=== PATIENT | female | born 1985 | race Caucasian/White ===

== ENCOUNTER 2025-03-25 19:46 | Inpatient (IN) | payer OTHER, SELFPAY ==
--- NOTE | 2025-03-25 | ECG_ITS ---
Test Reason : MED CLEAR Blood Pressure : */* mmHG Vent. Rate : 61 BPM Atrial Rate : 61 BPM P-R Int : 156 ms QRS Dur : 78 ms QT Int : 432 ms P-R-T Axes : 36 51 53 degrees QTcB Int : 434 ms Normal sinus rhythm Normal ECG No previous ECGs available Referred By: Amy Hu Electronically Signed By: JAMSHID AGUILAR
--- NOTE | 2025-03-25 20:07 | MHC.EDTECH ---
patient unable to use mesh underwear on when offered, patient is allergic to mesh. kept cotton underwear. RN Kaitlyn aware
[2025-03-25 20:12] VITALS: BP 122/90; BP 129/60; PULSE 80; PULSE 92; RESP 18; TEMP 36.6; O2SAT 95; O2SAT 97; BMI 29.0
[2025-03-25 21:49] LABS: MANUAL DIFF FLAG NO
[2025-03-25 21:51] LABS: Basophils Percent Auto 0.4 % (0-2); Eosinophils Percent Auto 0.4 % (0-4); Hematocrit 37.1 % (37.0-47.0); Hemoglobin 12.6 g/dl (12.0-16.0); Imm Gran Abs Auto 0.05 X10*3/uL (0.00-0.03); Imm Gran Pct Auto 0.9 % (0.0-0.4); Lymphocytes Absolute Auto 2.4 X10*3/uL (1.2-4.9); Lymphocytes Percent Auto 41.8 % (20-40); Mean Corpuscular Hemoglobin 29.1 pg (27.0-33.0); Mean Corpuscular Volume 85.7 fL (80.0-98.0); Mean Platelet Volume 10.3 fL (9.4-12.3); Monocytes Absolute Auto 0.3 X10*3/uL (0.1-1.2); Monocytes Percent Auto 4.6 % (2-11); Neutrophils Percent Auto 51.9 % (45-73); Platelet Count 309 X10*3/uL (160-400); Red Blood Count 4.33 X10*6/uL (4.20-5.50); Red Cell Distribution Width 14.8 % (11.0-16.0); White Blood Count 5.7 X10*3/uL (4.8-10.8)
[2025-03-25 22:07] LABS: Acetaminophen LAB < 3 mcg/mL (<30); Alanine Aminotransferase 26 U/L (0-31); Albumin Level 4.5 g/dL (3.5-5.0); Alkaline Phosphatase 121 U/L (39-117); Anion Gap 16 (12-20); Aspartate Amino Transferase 25 U/L (5-31); Bilirubin Total 0.6 mg/dL (0.0-1.0); Blood Urea Nitrogen 16 mg/dL (9-16); Calcium 9.7 mg/dL (8.4-10.2); Carbon Dioxide 26 mmol/L (22-29); Chloride 101 mmol/L (96-108); Creatinine Clr Calc Pharmacy 112.3; Estimated Glomerular Filt Rate > 60; Ethanol < 10 mg/dL; Glucose Random 95 mg/dL (60-115); Magnesium 1.9 mg/dL (1.6-2.6); Potassium 3.1 mmol/L (3.3-5.1); Salicylate < 5.0 mg/dL (15-30); Sodium 140 mmol/L (135-145); Total Protein 7.9 g/dL (6.5-8.0)
--- NOTE | 2025-03-25 23:34 | PC.NURSE ---
patient called t/w to her room then said im all set-dont want to deal with you
--- NOTE | 2025-03-25 23:58 | ED.GENADULT ---
HPI - General Adult General Chief complaint: Psychiatric Symptoms Stated complaint: sect. 12, delusional thinking Time Seen by Provider: 03/25/25 20:40 Source: patient Limitations: no limitations History of Present Illness ED Provider: Amy Hu PA-C HPI narrative: 40-year-old female with history of unspecified schizophrenia spectrum and other psychotic disorder, with self report of COPD, fibromyalgia, osteoporosis, leukemia, sickle cell disease, diverticulitis, presents from [facility], via section 12, with decompensated psychiatric illness. Patient was recently incarcerated on March 23 at [facility]'s [facility] [place], after being arrested for breaking and entering and vandalism. During her incarceration, the patient developed delusional thoughts, agitation, she was not tending to her activities of daily living, which included refusing to eat and tending to her basic hygiene. Patient has also not been taking her psychiatric medications, she has been refusing them. When the patient is asked why she is here in the emergency department, she states ?it is all medical, I am not a section 12, I am here for medical reasons?. Patient further explains that she is having pelvic pain with vaginal bleeding, soaking through a pad every hour for 2 weeks. It is well documented in the [facility] paperwork that the patient has not been experiencing vaginal bleeding. The patient continues to deny SI or HI, denies use of alcohol or illicit substances. Related Data Home Medications ?Medication ?Instructions ?Recorded ?Confirmed clonazepam 0.5 mg tablet 0.5 mg PO BID PRN anxiety 03/26/25 03/26/25 divalproex 500 mg tablet,extended 500 mg PO QPM 03/26/25 03/26/25 release 24 hr gabapentin 600 mg tablet 600 mg PO BID anxiety 03/26/25 03/26/25 methadone 10 mg/mL oral 90 mg PO DAILY 03/26/25 03/26/25 concentrate (Methadone Intensol) omeprazole 40 mg capsule,delayed 40 mg PO DAILY 03/26/25 03/26/25 release Allergies Allergy/AdvReac Type Severity Reaction Status Date / Time haloperidol [From Haldol] Allergy Unknown Verified 03/25/25 22:22 ibuprofen Allergy Unknown Verified 03/25/25 22:22 ketorolac [From Toradol] Allergy Unknown Verified 03/25/25 22:22 latex Allergy Unknown Verified 03/25/25 22:22 metoclopramide [From Reglan] Allergy Unknown Verified 03/25/25 22:22 olanzapine [From Zyprexa] Allergy Unknown Verified 03/25/25 22:22 prochlorperazine Allergy Unknown Verified 03/25/25 22:22 [From Compazine] tramadol Allergy Unknown Verified 03/25/25 22:22 Review of Systems Review of Systems: Yes all other systems are reviewed and are negative Constitutional: Constitutional: Denies fatigue and Denies fever(s) Cardiovascular: Cardiovascular: Denies chest pain and Denies dyspnea Respiratory: Respiratory: Denies cough and Denies dyspnea Gastrointestinal: Gastrointestinal: Reports abdominal pain, Denies nausea and Denies vomiting Genitourinary: Genitourinary: Reports other (Vaginal bleeding) Endocrine: Endocrine: Denies fatigue PMF Past Medical History Attestation statement: The following information was validated with the patient. Medical History (Updated 03/26/25 @ 02:57 by MAN De Leon) PTSD (post-traumatic stress disorder) Schizophrenia ADHD ADD (attention deficit disorder) COPD (chronic obstructive pulmonary disease) Social History Social History Unable to assess alcohol history related to: Refusing to respond Patient Tobacco Use Status: Refuse Tobacco use screen Smoked in Last 30 Days: No Use of substances other than those prescribed or required for medical reasons: No Advance Directives: No Advance Directives Information Provided: Yes Do you have a plan to hurt others: No Plan Nutrition Risks: No Nutritional Risk Patient : No Physical Exam ED Vital Signs: Vital Signs - 24 hr 03/25/25 20:12 03/26/25 06:45 03/26/25 14:30 Temperature 97.9 F 98 F 98.0 F Pulse Rate 92 68 81 Respiratory Rate 18 18 14 Blood Pressure 129/60 104/55 L 112/61 Pulse Oximetry 97 98 95 Oxygen Delivery Method Room Air Room Air Room Air BMI result Body Mass Index 29.0 Const Other: Awake, appears older than stated age, appears that she just showered Orientation/consciousness: patient oriented x3 Resp Effort & Inspection: normal respiratory effort Cardio Other: Normal peripheral perfusion GI Other: The patient is guarding against palpation of the abdomen before being touched, with distraction, her abdomen is extremely soft nondistended nontender no guarding Skin Other: Warm dry no rash Neuro General: patient oriented x3, gait normal, no focal motor deficits and CN's II-XI intact bilaterally Psych Other: Cooperative for me in the emergency department, exhibiting paranoid delusions, asking that the record of her being incarcerated be removed from her chart given ?the charges were false?. Patient having pressured speech, speaking rapidly Course Course Course Narrative: Time: 15:35 Date: 03/26/25 Provider: Juan Hackett MD Physician observation ended at 1426. Patient to be admitted as inpatient to psychiatry. Reevaluation(s) Reevaluation #1: Time: 02:57 Date: 03/26/25 Provider: MAN De Leon Patient in physician observation for psychiatric evaluation.? No acute events reported overnight. No current complaints. VS stable.? Patient is in bed search status/pending CARE team evaluation. Will continue to monitor. Medications Administered Generic Name Dose Route Start Last Admin Trade Name Freq PRN Reason Stop Dose Admin Methadone HCl 90 mg 03/26/25 10:30 03/26/25 10:33 Methadone Hcl 20 Mg/2 Ml Oral.Conc PO 90 mg DAILY FRANCES Administration Omeprazole 40 mg 03/26/25 10:30 03/26/25 10:39 Omeprazole 40 Mg Capsule.Dr PO 40 mg DAILY@0630 FRANCES Administration Discontinued Medications Generic Name Dose Route Start Last Admin Trade Name Freq PRN Reason Stop Dose Admin Acetaminophen 650 mg 03/25/25 23:49 03/26/25 00:03 Acetaminophen 325 Mg Tablet PO 03/25/25 23:50 650 mg ONCE ONE Administration Clonazepam 0.5 mg 03/26/25 10:13 03/26/25 10:39 Clonazepam 0.5 Mg Tablet PO 0.5 mg BID PRN Administration Anxiety Gabapentin 600 mg 03/26/25 10:13 03/26/25 10:39 Gabapentin 600 Mg Tablet PO 600 mg BID PRN Administration Anxiety Medical Decision Making Medical Decision Making MDM Narrative: 40-year-old female with history of unspecified schizophrenia spectrum and other psychotic disorder, with self report of COPD, fibromyalgia, osteoporosis, leukemia, sickle cell disease, diverticulitis, presents from [facility], via section 12, with decompensated psychiatric illness. Patient was recently incarcerated on March 23 at [facility]'s [facility], after being arrested for breaking and entering and vandalism. During her incarceration, the patient developed delusional thoughts, agitation, she was not tending to her activities of daily living, which included refusing to eat and tending to her basic hygiene. Patient has also not been taking her psychiatric medications, she has been refusing them. When the patient is asked why she is here in the emergency department, she states ?it is all medical, I am not a section 12, I am here for medical reasons?. Patient further explains that she is having pelvic pain with vaginal bleeding, soaking through a pad every hour for 2 weeks. It is well documented in the [facility] paperwork that the patient has not been experiencing vaginal bleeding. The patient continues to deny SI or HI, denies use of alcohol or illicit substances. Problem: Psychiatric illness History: Per patient and [facility] record I have considered the following differential diagnoses: SI, HI, decompensated psychiatric illness, drug/alcohol intoxication Plan: The patient will be referred to the care team, I foresee her being a bed search, she does appear quite decompensated. We will be screening basic labs, serum ethanol and drug screen. And test. I have independently reviewed the following tests: Labs: No leukocytosis, not anemic, her blood counts are quite stable, potassium low at 3.1, no electrolyte abnormality, test , ethanol negative, drug screen positive for methadone Lab Data 03/25/25 21:41 03/26/25 13:09 Labs: Lab Results 03/25/25 03/26/25 03/26/25 Range/Units 21:41 00:09 13:09 WBC 5.7 (4.8-10.8) X10*3/uL RBC 4.33 (4.20-5.50) X10*6/uL Hgb 12.6 (12.0-16.0) g/dl Hct 37.1 (37.0-47.0) % MCV 85.7 (80.0-98.0) fL MCH 29.1 (27.0-33.0) pg MCHC 34.0 (31.0-35.0) g/dl RDW 14.8 (11.0-16.0) % Plt Count 309 (160-400) X10*3/uL MPV 10.3 (9.4-12.3) fL Immature Gran % (Auto) 0.9 H (0.0-0.4) % Neut % (Auto) 51.9 (45-73) % Lymph % (Auto) 41.8 H (20-40) % Weber % (Auto) 4.6 (2-11) % Eos % (Auto) 0.4 (0-4) % Baso % (Auto) 0.4 (0-2) % Lymph # (Auto) 2.4 (1.2-4.9) X10*3/uL Weber # (Auto) 0.3 (0.1-1.2) X10*3/uL Eos # (Auto) 0.0 (0.0-0.4) X10*3/uL Baso # (Auto) 0.0 (0.0-0.2) X10*3/uL Abs Immat Gran (auto) 0.05 H (0.00-0.03) X10*3/uL Absolute Neuts (auto) 3.0 (2.0-8.3) x10*3/uL Absolute Nucleated RBC 0.000 (0.0-0.012) X10*3/uL Nucleated RBC % (auto) 0.0 (0.0-0.2) /100WBC Sodium 140 135 (135-145) mmol/L Potassium 3.1 L 3.5 (3.3-5.1) mmol/L Chloride 101 100 (96-108) mmol/L Carbon Dioxide 26 26 (22-29) mmol/L Anion Gap 16 13 (12-20) BUN 16 12 (9-16) mg/dL Creatinine 0.71 0.68 (0.5-1.4) mg/dL Estim Creat Clear Calc 112.3 117.2 Estimated GFR > 60 > 60 Random Glucose 95 107 (60-115) mg/dL Calcium 9.7 9.5 (8.4-10.2) mg/dL Magnesium 1.9 (1.6-2.6) mg/dL Total Bilirubin 0.6 (0.0-1.0) mg/dL AST 25 (5-31) U/L ALT 26 (0-31) U/L Alkaline Phosphatase 121 H (39-117) U/L Total Protein 7.9 (6.5-8.0) g/dL Albumin 4.5 (3.5-5.0) g/dL Beta HCG, Quant < 2 mIU/mL Urine Color Dark Yellow Urine Appearance Clear Urine pH 6.0 (5.0-9.0) Ur Specific Raymond 1.025 (1.005-1.025) Urine Protein 30 (1+) H (Neg-Trace) mg/dL Urine Glucose (UA) Negative (Negative) mg/dL Urine Ketones 15 (Negative) mg/dL Urine Blood Trace H (Negative) Urine Nitrite Negative (Negative) Ur Leukocyte Esterase Negative (Negative) Urine RBC 0-2 (0-2) /HPF Urine WBC 0-5 (0-5) /HPF Ur Squamous Epith Cells 3-5 (0-2) /HPF Calcium Oxalate Crystal Present Urine Bacteria None Seen (None Seen) Hyaline Casts 0-2 (0-2) /LPF Salicylates < 5.0 L (15-30) mg/dL Urine Opiates Screen Not Detected (Not Detect) Ur Buprenorphine Scrn Not Detected (Not Detect) ng/mL Ur Oxycodone Screen Not Detected (Not Detect) ng/mL Urine Methadone Screen Positive H (Not Detect) ng/mL Urine Fentanyl Screen Not Detected (Not Detect) Acetaminophen < 3 (<30) mcg/mL Ur Barbiturates Screen Not Detected (Not Detect) Ur Phencyclidine Scrn Not Detected (Not Detect) Ur Amphetamines Screen Not Detected (Not Detect) U Benzodiazepines Scrn Not Detected (Not Detect) Urine Cocaine Screen Not Detected (Not Detect) U Marijuana (THC) Screen Not Detected (Not Detect) Ethyl Alcohol < 10 mg/dL Discharge Plan Discharge Clinical Impression: Paranoid delusion Patient Disposition: Admitted As Inpatient Interventions: [place]-Suicide Risk Severity Scale Last Done: 03/25/25 22:34 Admission Worksheet (ED) Last Done: 03/26/25 14:54 Discharge Date/Time: 03/26/25 14:55
[2025-03-26] MEDS: Acetaminophen 325 MG TABLET 650 MG PO (00:03)
[2025-03-26 00:31] LABS: Amphetamine Screen Urine Not Detected (Not Detect); Barbiturates, Urine Not Detected (Not Detect); Benzodiazepines Screen Urine Not Detected (Not Detect); Buprenorphine Scr Not Detected (Not Detect); Cannabinoid Screen Urine Not Detected (Not Detect); Cocaine Screen Urine Not Detected (Not Detect); Fentanyl, urine Not Detected (Not Detect); Methadone Screen, Urine Positive (Not Detect); Opiate Screen Urine Not Detected (Not Detect); Oxycodone Screen Urine Not Detected (Not Detect); Phencyclidine Screen Urine Not Detected (Not Detect)
[2025-03-26 03:29] LABS: HCG Quantitative < 2 mIU/mL
--- NOTE | 2025-03-26 03:58 | PC.NURSE ---
late entry med rec not able to be pursued d/t [facility] pharmacy in [place] closed once information had been obtained.
[2025-03-26 06:45] VITALS: BP 104/55; PULSE 68; RESP 18; TEMP 36.6; O2SAT 98
[2025-03-26 07:35] LABS: Appearance Urine Clear; Color Urine Dark Yellow; Glucose Urine UA Negative (Negative); Leukocyte Esterase Urine Negative (Negative); Nitrite Urine Negative (Negative); Specific Gravity - Urine 1.025 (1.005-1.025); UMIC TRIGGER UA YES; Urine Blood Trace (Negative); Urine Ketones 15 mg/dL (Negative); Urine Protein 30 (1+) mg/dL (Neg-Trace)
[2025-03-26 08:04] LABS: Bacteria Urine None Seen (None Seen); Hyaline Casts Urine 0-2 /LPF (0-2); RBC Urine 0-2 /HPF (0-2); WBC Urine 0-5 /HPF (0-5)
[2025-03-26 08:06] LABS: Calcium Oxalate Crystals Urine Present
--- NOTE | 2025-03-26 10:23 | HE.PHANOTE ---
Pt received 90mg on 03/25/25 from [facility] ([phone]), per Lizette from facility.
[2025-03-26] MEDS: methADONE HCl 20 MG/2 ML ORAL.CONC 90 MG PO (10:33)
[2025-03-26] MEDS: Gabapentin 600 MG TABLET PO ×2 (10:39→21:18)
[2025-03-26] MEDS: Omeprazole 40 MG CAPSULE.DR PO (10:39)
[2025-03-26] MEDS: clonazePAM 0.5 MG TABLET PO ×2 (10:39→16:35)
--- NOTE | 2025-03-26 11:43 | PC.NURSE ---
Pt reporting that she does not want to go inpatient, she is going home. CARE team, Falguni toth
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
--- NOTE | 2025-03-26 13:18 | MHC.EDTECH ---
Patient refused lunch tray. RN aware
[2025-03-26 13:30] LABS: Anion Gap 13 (12-20); Blood Urea Nitrogen 12 mg/dL (9-16); Calcium 9.5 mg/dL (8.4-10.2); Carbon Dioxide 26 mmol/L (22-29); Chloride 100 mmol/L (96-108); Creatinine Clr Calc Pharmacy 117.2; Estimated Glomerular Filt Rate > 60; Glucose Random 107 mg/dL (60-115); Potassium 3.5 mmol/L (3.3-5.1); Sodium 135 mmol/L (135-145)
--- NOTE | 2025-03-26 14:22 | MHC.CARE ---
Pt requested to speak with yard supervisor. T/w briefly met with Pt who requested discharged. T/w informed Pt she was assessed by [facility] and found IPLOC and being held on Section 12A. Pt requested human rights information. T/w informed Pt she would be admitted and staff wtih shore hand dredge or barge her human rights information.
--- NOTE | 2025-03-26 14:24 | MHC.CARE ---
patient laying down. t/w knocked on the door, patient did not reply. Stated I was leaving paperwork on her desk. That it was the patient rights she requested.
[2025-03-26 14:30] VITALS: BP 112/61; PULSE 81; RESP 14; TEMP 36.7; O2SAT 95
--- NOTE | 2025-03-26 14:38 | PC.NURSE ---
pt agitated, asking for copy of her labs. Paper copy provided per pt request
--- NOTE | 2025-03-26 14:38 | MHC.EDTECH ---
Patient came out of room asking to speak with one of the kitchen staff who was stocking the fridge. Patient asked for a cheeseburger and fries. This tech stated I could put in a request for dinner, but that we would not be ordering a meal right now. Patient became upset because I haven't eaten all day. this tech reminded patient that she refused her lunch, which was a vegan tray because patient stated she was a vegan. Patient stated to this tech, I'll eat a cheeseburger and fries. This tech offered to heat patients lunch tray but reiterated that we would not be ordering a meal at this time. Patient then started yelling about her insurance being charged for her meals and returned to her room while continuing to yell regarding her lab work.
[2025-03-26 15:06] VITALS: BP 122/58; PULSE 78; RESP 18; TEMP 36.4; O2SAT 94
--- NOTE | 2025-03-26 15:18 | PC.NURSE ---
Patient arrive to the unit, refused to do change management analyst, placed on 1:1 status. Provider notified. Admission protocol explained, pt agitated, calling [facility] due to current legal status.
--- NOTE | 2025-03-26 16:05 | PC.NURSE ---
Pt claimed she had $132 with her belongings, pt has a copy of the property sheet from the [facility] which documented $132.27. Pt was told that her credit cards were listed in her inventory while she was in the ED but no salas was listed. RN called [facility] and spoke with Ciera Savage who stated it's possible the money is still in their possession but he could not confirm or deny. He stated this would have to go through management who is gone for the day and is only available Saturday-Saturday and can be reached at [phone] extension [phone].
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
[2025-03-26 20:35] VITALS: BP 136/63; PULSE 98; RESP 18; TEMP 36.6; O2SAT 94
[2025-03-27 08:15] VITALS: BP 111/58; PULSE 76; RESP 18; TEMP 36.9; O2SAT 96
[2025-03-27] MEDS: methADONE HCl 20 MG/2 ML ORAL.CONC 90 MG PO (08:15)
[2025-03-27] MEDS: cloNIDine HCL 0.1 MG TABLET 0.3 MG PO ×3 (09:05→22:33)
[2025-03-27] MEDS: Omeprazole 40 MG CAPSULE.DR PO (09:05)
[2025-03-27] MEDS: Gabapentin 600 MG TABLET PO ×2 (09:06→22:34)
[2025-03-27 10:29] LABS: Estimated Average Glucose 105 mg/dL; Hemoglobin A1C 112.6098 umol/L; Hemoglobin A1c % 5.3 % (<6.0); Total Hemoglobin (HGBA1C) 3274.7317 umol/L
[2025-03-27 10:39] LABS: Alanine Aminotransferase 20 U/L (0-31); Albumin Level 4.3 g/dL (3.5-5.0); Alkaline Phosphatase 118 U/L (39-117); Anion Gap 14 (12-20); Aspartate Amino Transferase 20 U/L (5-31); Bilirubin Total 0.3 mg/dL (0.0-1.0); Blood Urea Nitrogen 16 mg/dL (9-16); Calcium 9.4 mg/dL (8.4-10.2); Carbon Dioxide 28 mmol/L (22-29); Chloride 104 mmol/L (96-108); Cholesterol 235 mg/dL (<200); Creatinine Clr Calc Pharmacy 110.8; Estimated Glomerular Filt Rate > 60; Glucose Random 119 mg/dL (60-115); HDL Cholesterol 55 mg/dL (>40); LDL Cholesterol Calculated 168 mg/dL (<100); Potassium 4.1 mmol/L (3.3-5.1); Sodium 142 mmol/L (135-145); Total Protein 7.4 g/dL (6.5-8.0); Triglycerides 60 mg/dL (<150)
--- NOTE | 2025-03-27 11:11 | HO.PSYCHPN ---
Subjective Subjective Date of Service: 03/27/25 Reason For Visit: Crisis Subjective Notes: Section 12B Interim History: I attempted to see the patient who refused to be seen. Discussed in rounds today. Records and plans were reviewed. I tried to see her today but she pulled the covers over her head and refused to answer any questions. She had talked to the nurse requesting Prozac and Adderall. She has not filled any Adderall for close to 4 months. I did not order these without seeing her. Review of Systems Review of Systems Yes Unobtainable due to mental status Mental Status Exam Mental Status Exam Narrative: Could not be assessed/refused Diagnostics Vital Signs (24Hr): Vital Signs - 24 hr 03/26/25 14:30 03/26/25 15:06 03/26/25 20:35 Temperature 98.0 F 97.5 F 97.9 F Pulse Rate 81 78 98 Respiratory Rate 14 18 18 Blood Pressure 112/61 122/58 L 136/63 Pulse Oximetry 95 94 94 Oxygen Delivery Method Room Air Room Air Room Air 03/27/25 08:15 Temperature 98.4 F Pulse Rate 76 Respiratory Rate 18 Blood Pressure 111/58 L Pulse Oximetry 96 Oxygen Delivery Method Room Air BMI result Body Mass Index 29.0 Labs 03/25/25 21:41 03/27/25 10:08 Labs: Laboratory Results - last 48 hr 03/25/25 03/26/25 03/26/25 21:41 00:09 13:09 WBC 5.7 RBC 4.33 Hgb 12.6 Hct 37.1 MCV 85.7 MCH 29.1 MCHC 34.0 RDW 14.8 Plt Count 309 MPV 10.3 Immature Gran % (Auto) 0.9 H Neut % (Auto) 51.9 Lymph % (Auto) 41.8 H [place] % (Auto) 4.6 Eos % (Auto) 0.4 Baso % (Auto) 0.4 Lymph # (Auto) 2.4 [place] # (Auto) 0.3 Eos # (Auto) 0.0 Baso # (Auto) 0.0 Abs Immat Gran (auto) 0.05 H Absolute Neuts (auto) 3.0 Absolute Nucleated RBC 0.000 Nucleated RBC % (auto) 0.0 Sodium 140 135 Potassium 3.1 L 3.5 Chloride 101 100 Carbon Dioxide 26 26 Anion Gap 16 13 BUN 16 12 Creatinine 0.71 0.68 Estim Creat Clear Calc 112.3 117.2 Estimated GFR > 60 > 60 Random Glucose 95 107 Estimat Average Glucose Hemoglobin A1c % Calcium 9.7 9.5 Magnesium 1.9 Total Bilirubin 0.6 AST 25 ALT 26 Alkaline Phosphatase 121 H Total Protein 7.9 Albumin 4.5 Triglycerides Cholesterol LDL Cholesterol, Calc HDL Cholesterol Beta HCG, Quant < 2 Urine Color Dark Yellow Urine Appearance Clear Urine pH 6.0 Ur Specific [place] 1.025 Urine Protein 30 (1+) H Urine Glucose (UA) Negative Urine Ketones 15 Urine Blood Trace H Urine Nitrite Negative Ur Leukocyte Esterase Negative Urine RBC 0-2 Urine WBC 0-5 Ur Squamous Epith Cells 3-5 Calcium Oxalate Crystal Present Urine Bacteria None Seen Hyaline Casts 0-2 Salicylates < 5.0 L Urine Opiates Screen Not Detected Ur Buprenorphine Scrn Not Detected Ur Oxycodone Screen Not Detected Urine Methadone Screen Positive H Urine Fentanyl Screen Not Detected Acetaminophen < 3 Ur Barbiturates Screen Not Detected Ur Phencyclidine Scrn Not Detected Ur Amphetamines Screen Not Detected U Benzodiazepines Scrn Not Detected Urine Cocaine Screen Not Detected U Marijuana (THC) Screen Not Detected Ethyl Alcohol < 10 03/27/25 10:08 WBC RBC Hgb Hct MCV MCH MCHC RDW Plt Count MPV Immature Gran % (Auto) Neut % (Auto) Lymph % (Auto) [place] % (Auto) Eos % (Auto) Baso % (Auto) Lymph # (Auto) [place] # (Auto) Eos # (Auto) Baso # (Auto) Abs Immat Gran (auto) Absolute Neuts (auto) Absolute Nucleated RBC Nucleated RBC % (auto) Sodium 142 Potassium 4.1 Chloride 104 Carbon Dioxide 28 Anion Gap 14 BUN 16 Creatinine 0.69 Estim Creat Clear Calc 110.8 Estimated GFR > 60 Random Glucose 119 H Estimat Average Glucose 105 Hemoglobin A1c % 5.3 Calcium 9.4 Magnesium Total Bilirubin 0.3 AST 20 ALT 20 Alkaline Phosphatase 118 H Total Protein 7.4 Albumin 4.3 Triglycerides 60 Cholesterol 235 H LDL Cholesterol, Calc 168 H HDL Cholesterol 55 Beta HCG, Quant Urine Color Urine Appearance Urine pH Ur Specific [place] Urine Protein Urine Glucose (UA) Urine Ketones Urine Blood Urine Nitrite Ur Leukocyte Esterase Urine RBC Urine WBC Ur Squamous Epith Cells Calcium Oxalate Crystal Urine Bacteria Hyaline Casts Salicylates Urine Opiates Screen Ur Buprenorphine Scrn Ur Oxycodone Screen Urine Methadone Screen Urine Fentanyl Screen Acetaminophen Ur Barbiturates Screen Ur Phencyclidine Scrn Ur Amphetamines Screen U Benzodiazepines Scrn Urine Cocaine Screen U Marijuana (THC) Screen Ethyl Alcohol Medications Medications Current Medications Acetaminophen (Acetaminophen 325 Mg Tablet) 650 mg PO Q6H PRN PRN Reason: Headache/Pain, Scale 1-10 Al Hydroxide/Mg Hydroxide (Magnesium Hydrox/Alum Hydrox 30 Ml Oral.Susp) 30 ml PO Q6H PRN PRN Reason: Heartburn/Nausea Clonazepam (Clonazepam 0.5 Mg Tablet) 0.5 mg PO BID PRN PRN Reason: anxiety Last Admin: 03/26/25 16:35 Dose: 0.5 mg Clonidine HCl (Clonidine Hcl 0.1 Mg Tablet) 0.3 mg PO TID [facility]; Protocol Last Admin: 03/27/25 09:05 Dose: 0.3 mg Divalproex Sodium (Divalproex Sodium 500 Mg Tablet.) 500 mg PO BEDTIME [facility] Last Admin: 03/26/25 23:34 Dose: Not Given Gabapentin (Gabapentin 600 Mg Tablet) 600 mg PO BID [facility] Last Admin: 03/27/25 09:06 Dose: 600 mg Hydroxyzine HCl (Hydroxyzine Hcl 25 Mg Tablet) 25 mg PO Q6H PRN PRN Reason: mild anxiety Magnesium Hydroxide (Milk Of Magnesia 30 Ml Oral.Susp) 30 ml PO DAILY PRN PRN Reason: Constipation Methadone HCl (Methadone Hcl 20 Mg/2 Ml Oral.Conc) 90 mg PO DAILY [facility] Last Admin: 03/27/25 08:15 Dose: 90 mg Nicotine Polacrilex (Nicotine Polacrilex 2 Mg Gum) 4 mg BUCCAL Q2H PRN PRN Reason: Nicotine Cravings Omeprazole (Omeprazole 40 Mg Capsule.) 40 mg PO DAILY@0630 [facility] Last Admin: 03/27/25 09:05 Dose: 40 mg Trazodone HCl (Trazodone Hcl 50 Mg Tablet) 50 mg PO BEDTIME MRX1 PRN PRN Reason: Insomnia Allergies Allergies Allergy/AdvReac Type Severity Reaction Status Date / Time haloperidol [From Haldol] Allergy Unknown Verified 03/25/25 22:22 ibuprofen Allergy Unknown Verified 03/25/25 22:22 ketorolac [From Toradol] Allergy Unknown Verified 03/25/25 22:22 latex Allergy Unknown Verified 03/25/25 22:22 metoclopramide [From Reglan] Allergy Unknown Verified 03/25/25 22:22 olanzapine [From Zyprexa] Allergy Unknown Verified 03/25/25 22:22 prochlorperazine Allergy Unknown Verified 03/25/25 22:22 [From Compazine] tramadol Allergy Unknown Verified 03/25/25 22:22 Assessment & Plan Assessment & Plan (1) Paranoid delusion: Status: Acute Code(s): F22 - Delusional disorders Plan 03/27: Continue current regimen and plans Reason for continued inpatient stay Substantial Risk for: med/psych decompensation Time Spent With Patient Time: Total time managing care of this patient today ____ minutes.
[2025-03-27] MEDS: HYDROmorphone HCl 2 MG TABLET 4 MG PO ×2 (14:23→22:21)
[2025-03-27 14:24] VITALS: BP 101/69
[2025-03-27] MEDS: clonazePAM 0.5 MG TABLET PO ×2 (14:34→22:21)
[2025-03-27 20:30] VITALS: BP 83/54; PULSE 84; RESP 16; TEMP 36.8; O2SAT 94
[2025-03-27 20:49] VITALS: BP 86/54
[2025-03-27 20:50] VITALS: BP 88/56
[2025-03-27 22:33] VITALS: BP 100/63
[2025-03-27] MEDS: Divalproex Sodium 500 MG TABLET.DR PO (22:34)
--- NOTE | 2025-03-27 23:01 | PC.NURSE ---
Mariana Ceballos refused all HS medications r/t being angry that her B/P was too low to support her Clonidine. your fucking stupid you don't know what your doing, get me another nurse, I'm not refusing my meds I'm refusing you, you don't know what my blood pressure is supposed to be I take my clonidine to keep my blood pressure low I'm supposed to be 80/50 or 60/30 that's what my doctor wants. patient did eventually accept her HS medications with a Left forearm with the small cuff 100/63 pulse 69. Covering provider made aware
[2025-03-28] VITALS (7 sets, daily range): BP systolic 94–120; BP diastolic 40–69; PULSE 72; RESP 18; TEMP 36.9
[2025-03-28] MEDS: methADONE HCl 20 MG/2 ML ORAL.CONC 90 MG PO (08:12)
[2025-03-28] MEDS: Omeprazole 40 MG CAPSULE.DR PO (08:44)
[2025-03-28] MEDS: HYDROmorphone HCl 2 MG TABLET 4 MG PO ×4 (08:44→22:41)
[2025-03-28] MEDS: Gabapentin 600 MG TABLET PO ×2 (08:44→22:42)
[2025-03-28] MEDS: clonazePAM 0.5 MG TABLET PO ×2 (08:45→22:43)
[2025-03-28] MEDS: Dextroamphetamine/Amphetamine XR 10 MG CAP.ER.24H 30 MG PO (08:45)
[2025-03-28] MEDS: FLUoxetine HCl 20 MG CAPSULE 60 MG PO (08:45)
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
[2025-03-28] MEDS: cloNIDine HCL 0.2 MG TABLET PO ×3 (12:59→22:42)
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
[2025-03-28 16:43] LABS: HCG Quantitative < 2 mIU/mL
[2025-03-28 19:28] LABS: Appearance Urine Clear; Color Urine Dark Yellow; Glucose Urine UA Negative (Negative); Leukocyte Esterase Urine Small (1+) (Negative); Nitrite Urine Negative (Negative); Specific Gravity - Urine >= 1.030 (1.005-1.025); UMIC TRIGGER UA YES; Urine Blood Moderate (2+) (Negative); Urine Ketones Trace mg/dL (Negative); Urine Protein Trace mg/dL (Neg-Trace)
[2025-03-28 19:33] LABS: Bacteria Urine Trace (None Seen); Hyaline Casts Urine 0-2 /LPF (0-2)
[2025-03-29 07:50] VITALS: BP 102/55; PULSE 65; RESP 14; TEMP 36.4; O2SAT 95
[2025-03-29] MEDS: methADONE HCl 20 MG/2 ML ORAL.CONC 90 MG PO (07:59)
[2025-03-29] MEDS: Omeprazole 40 MG CAPSULE.DR PO (08:33)
[2025-03-29] MEDS: Gabapentin 600 MG TABLET PO ×2 (08:34→21:13)
[2025-03-29] MEDS: cloNIDine HCL 0.2 MG TABLET PO ×3 (08:34→21:13)
[2025-03-29] MEDS: FLUoxetine HCl 20 MG CAPSULE 60 MG PO (08:35)
[2025-03-29 15:02] VITALS: BP 113/70; PULSE 63; RESP 16; TEMP 36.4; O2SAT 96
--- NOTE | 2025-03-29 15:42 | HO.PSYCHPN ---
Subjective Subjective Date of Service: 03/29/25 Reason For Visit: delusions Interim History: somewhat pressured, disorganized, difficult to follow. c/o physical pain - neck, back, kidneys, gallbladder.... denies mental health Sx or complaints, states clearly, i am here for medical reasons, not psychiatric. denies SI/SIBI/HI/AVH. agreeable to DC weds to address medical problems. per staff, demanding, irritable, psychotic saturday. saturday asked for and received adderall and spent the next 8 hours screaming. asking for adderall and dilaudid today. Mental Status Exam Mental Status Exam Narrative: In today's visit, she is alert, oriented and mostly pleasant until hearing a no. Speech nml loudness, incr amount and rate. fair eye contact. Affect is constricted and hyper-intense. She denies auditory and visual hallucinations. Cognitively she is grossly intact but would not be tested formally. She denies SI/HI. Judgment is impaired. She is able to move all limbs. No gait abnormalities. Diagnostics Vital Signs (24Hr): Vital Signs - 24 hr 03/28/25 18:23 03/28/25 20:00 03/28/25 22:42 Temperature Pulse Rate Respiratory Rate Blood Pressure 117/52 L 120/66 120/62 Pulse Oximetry Oxygen Delivery Method 03/29/25 07:50 03/29/25 15:02 Temperature 97.5 F 97.6 F Pulse Rate 65 63 Respiratory Rate 14 16 Blood Pressure 102/55 L 113/70 Pulse Oximetry 95 96 Oxygen Delivery Method Room Air Room Air BMI result Body Mass Index 29.0 Labs 03/25/25 21:41 03/27/25 10:08 Labs: Laboratory Results - last 48 hr 03/28/25 03/28/25 16:02 19:18 Beta HCG, Quant < 2 Urine Color Dark Yellow Urine Appearance Clear Urine pH 6.0 Ur Specific [place] >= 1.030 H Urine Protein Trace Urine Glucose (UA) Negative Urine Ketones Trace Urine Blood Moderate (2+) H Urine Nitrite Negative Ur Leukocyte Esterase Small (1+) H Urine RBC 6-10 H Urine WBC 6-10 H Ur Squamous Epith Cells 11-20 Urine Bacteria Trace Hyaline Casts 0-2 Medications Medications Current Medications Acetaminophen (Acetaminophen 325 Mg Tablet) 650 mg PO Q6H PRN PRN Reason: Headache/Pain, Scale 1-10 Al Hydroxide/Mg Hydroxide (Magnesium Hydrox/Alum Hydrox 30 Ml Oral.Susp) 30 ml PO Q6H PRN PRN Reason: Heartburn/Nausea Clonazepam (Clonazepam 0.5 Mg Tablet) 0.5 mg PO BID PRN PRN Reason: anxiety Last Admin: 03/28/25 22:43 Dose: 0.5 mg Clonidine HCl (Clonidine Hcl 0.2 Mg Tablet) 0.2 mg PO TID COUNTS INCLUDE 234 BEDS AT THE [facility]; Protocol Last Admin: 03/29/25 08:34 Dose: 0.2 mg Divalproex Sodium (Divalproex Sodium 500 Mg Tablet.) 500 mg PO BEDTIME COUNTS INCLUDE 234 BEDS AT THE [facility] Last Admin: 03/28/25 22:45 Dose: Not Given Fluoxetine HCl (Fluoxetine Hcl 20 Mg Capsule) 60 mg PO DAILY COUNTS INCLUDE 234 BEDS AT THE [facility] Last Admin: 03/29/25 08:35 Dose: 60 mg Gabapentin (Gabapentin 600 Mg Tablet) 600 mg PO BID COUNTS INCLUDE 234 BEDS AT THE [facility] Last Admin: 03/29/25 08:34 Dose: 600 mg Hydroxyzine HCl (Hydroxyzine Hcl 25 Mg Tablet) 25 mg PO Q6H PRN PRN Reason: mild anxiety Magnesium Hydroxide (Milk Of Magnesia 30 Ml Oral.Susp) 30 ml PO DAILY PRN PRN Reason: Constipation Methadone HCl (Methadone Hcl 20 Mg/2 Ml Oral.Conc) 90 mg PO DAILY COUNTS INCLUDE 234 BEDS AT THE [facility] Last Admin: 03/29/25 07:59 Dose: 90 mg Nicotine Polacrilex (Nicotine Polacrilex 2 Mg Gum) 4 mg BUCCAL Q2H PRN PRN Reason: Nicotine Cravings Omeprazole (Omeprazole 40 Mg Capsule.) 40 mg PO DAILY@0630 COUNTS INCLUDE 234 BEDS AT THE [facility] Last Admin: 03/29/25 08:33 Dose: 40 mg Trazodone HCl (Trazodone Hcl 50 Mg Tablet) 50 mg PO BEDTIME MRX1 PRN PRN Reason: Insomnia Allergies Allergies Allergy/AdvReac Type Severity Reaction Status Date / Time celecoxib [From Celebrex] Allergy Involuntary Verified 03/27/25 12:45 Spasms haloperidol [From Haldol] Allergy Unknown Verified 03/25/25 22:22 ibuprofen Allergy Unknown Verified 03/25/25 22:22 ketorolac [From Toradol] Allergy Unknown Verified 03/25/25 22:22 latex Allergy Unknown Verified 03/25/25 22:22 metoclopramide [From Reglan] Allergy Unknown Verified 03/25/25 22:22 olanzapine [From Zyprexa] Allergy Unknown Verified 03/25/25 22:22 prochlorperazine Allergy Unknown Verified 03/25/25 22:22 [From Compazine] tramadol Allergy Unknown Verified 03/25/25 22:22 Assessment & Plan Assessment & Plan (1) Back pain: Qualifiers: Back pain location: low back pain Chronicity: chronic Back pain laterality: bilateral Sciatica presence: without sciatica Qualified Code(s): M54.50 - Low back pain, unspecified; G89.29 - Other chronic pain Status: Acute Code(s): M54.9 - Dorsalgia, unspecified Assessment and Plan: Patient is a 40-year-old female, reporting past medical history of lupus, persistent multiple sclerosis but does not follow with a neurologist, GERD, COPD/tobacco dependence, UTI, poor dentition, osteoporosis with no history of DEXA bone testing, seizure history last seizure was 1 week ago, fibromyalgia, interstitial cystitis, nephrolithiasis but no history of lithotripsy, patient does state that she follows with a palm gatherer, IBS, Crohn's disease but is not on any immunologics or injectables, on chronic methadone for pain management and patient denies history of IV drug abuse or polysubstance abuse, has ADHD, OCD, schizophrenia and PTSD was seen for consultation for ongoing back pain unrelieved with Dilaudid. please note this typewriter assembler was not able to confirm patient's medical history. Acute versus chronic back pain - differentials musculoskeletal, nephrolithiasis, cholecystitis, interstitial cystitis/ pyelonephritis, chronic pain -Labs done on admission are very reassuring that patient does not have an acute issue, no leukocytosis and no anemia, transaminitis or abnormal total bilirubin. -Clinical exam also reassuring -No current need for diagnostics/ xrays, pt states she will not do a CT scan due to claustrophobia and US not currently indicated -Will repeat urinalysis to reassure patient, we will check test if not already done to reassure patient noting she is complaining of menorrhagia -No current indication to repeat patient's CBC and CMP at this time -Patient educated that methadone inhibits the effectiveness of Dilaudid. Patient is not requesting an increase in her methadone. Patient is also deferring use of non narcotics including NSAIDs, Tylenol due to issues with her pancreas in the past but on specific as to diagnosis, lidocaine patch or topicals. At this time the only thing we can offer as Decadron and patient deferred that as well. -Dilaudid interval could be decreased to every 3 hours if deemed safe to do so. This typewriter assembler will defer to Psychiatry regarding this order noting patient is already on methadone. -Can consider physical therapy evaluation Seizure history -patient reports last seizure was 1 week ago and she did not seek treatment and has full memory of the event, question if seizure actually occurred. Patient states seizure started as a child but she was not diagnosed with epilepsy and does not follow with a neurologist. - can check Depakote level if needed - seizure precautions if needed - neuro consult if needed Menorrhagia -Based on report this could be delusional - we will check repeat UA and test to reassure patient - H&H is stable - no indication for repeat blood work - patient can follow-up as an outpatient with business controller if her symptoms persist Hyperlipidemia/ Hypertriglyceridemia - considering patient's psychiatric medications currently in place, this likely is not the cause of her hyperlipidemia and hypertriglyceridemia - recommending starting atorvastatin 20 mg at bedtime and monitor lipid panel in 6 weeks as well as liver panel - recommend nutritional consultation, unsure how receptive patient will be to recommendations at this time - patient should follow with her PCP in the outpatient setting regarding her lipid panel - patient advised on the benefits of smoking cessation in regards to hyperlipidemia Tobacco Dependence - patient deferred need for nicotine replacement therapy - patient denied using daily inhalers or a rescue inhaler - patient denied use of home O2 - patient counseled on the benefits of smoking cessation The hospitalist group will sign off at this time. We will order UA and tests have not already done. Please reconsult if results are abnormal or concerning or if patient's symptoms persist and further guidance is required. We appreciate this consultation! (2) HLD (hyperlipidemia): Qualifiers: Hyperlipidemia type: mixed hyperlipidemia Qualified Code(s): E78.2 - Mixed hyperlipidemia Status: Acute Code(s): E78.5 - Hyperlipidemia, unspecified Plan Mariana is a 40-year-old woman with history of PTSD, possible schizophrenia, delusional disorder, OCD and ADHD. This is her third psychiatric hospitalization, from the available information, around delusions. Current medications that were present in her home medications were continued. The exact dose of Adderall to be verified when the pharmacy opens today. She was admitted on a section 12b. We need to contact her staff and treaters to get further information. 03/29: received adderall yesterday and screamed for the next 8 hours. also got dilaudid for generalized pain. today states she is not here for mental health issues, only for medical, namely pain. agrees to discharge to work up pain outpatient. will increase depakote dosing to 1000 mg QHS as 500 QHS is too little. Reason for continued inpatient stay Substantial Risk for: inability to function Time Spent With Patient Time: Total time managing care of this patient today __25__ minutes.
[2025-03-29] MEDS: clonazePAM 0.5 MG TABLET PO ×2 (18:05→21:43)
[2025-03-29] MEDS: Acetaminophen 325 MG TABLET 650 MG PO (18:06)
[2025-03-29 20:00] VITALS: BP 118/65; PULSE 64; TEMP 36.4; O2SAT 98
[2025-03-30] MEDS: clonazePAM 0.5 MG TABLET PO ×2 (04:21→12:33)
--- NOTE | 2025-03-30 05:24 | PC.NURSE ---
C/o back pain, very irritable and yelling at the RN. I want to see real doctor, not the psychiatrist . She refused all PRNs Meds for pain.
[2025-03-30] MEDS: methADONE HCl 20 MG/2 ML ORAL.CONC 90 MG PO (08:28)
[2025-03-30] MEDS: Omeprazole 40 MG CAPSULE.DR PO (09:36)
[2025-03-30 09:37] VITALS: BP 105/58
[2025-03-30] MEDS: Gabapentin 600 MG TABLET PO (09:37)
[2025-03-30] MEDS: cloNIDine HCL 0.2 MG TABLET PO (09:37)
[2025-03-30] MEDS: FLUoxetine HCl 20 MG CAPSULE 60 MG PO (09:38)
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
== END 2025-03-30 14:09 | disposition home or self-care (01) | DRG 760 ==
LOC: HO.ED 03-26 14:30 → HO.PADLT16 03-26 14:43
PROVIDERS: Emergency Medicine; Nurse Practitioner Family; Physician Assistant Medical; Admitting Provider Registered Nurse; Emergency Provider Emergency Medicine; Visit Provider Psychiatry & Neurology Psychiatry
DX: F22 Delusional disorders (principal); M32.9 Systemic lupus erythematosus, unspecified; E78.5 Hyperlipidemia, unspecified; F39 Unspecified mood [affective] disorder; F11.20 Opioid dependence, uncomplicated; F17.210 Nicotine dependence, cigarettes, uncomplicated; Z71.6 Tobacco abuse counseling; M54.9 Dorsalgia, unspecified; G89.29 Other chronic pain; N92.0 Excessive and frequent menstruation with regular cycle; Z79.899 Other long term (current) drug therapy
CPT/HCPCS: 36415; 80048; 80053; 80061; 80143; 80179; 80307; 81001; 83036; 83735; 84702; 85025; 93005; 99285

== ENCOUNTER → 2025-03-25 22:19 | Outpatient (BNV) | payer MEDICAID, SELFPAY | PROVIDERS: Admitting Provider Registered Nurse; Emergency Provider Emergency Medicine; Visit Provider Internal Medicine | DX: R41.82 Altered mental status, unspecified (principal) | CPT/HCPCS: 93010 ==

== ENCOUNTER → 2025-03-26 14:42 | Outpatient (BNV) | payer MEDICAID, SELFPAY | PROVIDERS: Admitting Provider Registered Nurse; Emergency Provider Emergency Medicine; Visit Provider Nurse Practitioner Family | DX: M54.50 Low back pain, unspecified (principal); G89.29 Other chronic pain; E78.2 Mixed hyperlipidemia | CPT/HCPCS: 99223 ==

== ENCOUNTER → 2025-03-26 14:42 | Outpatient (BNV) | payer OTHER, SELFPAY | PROVIDERS: Admitting Provider Registered Nurse; Emergency Provider Emergency Medicine; Visit Provider Psychiatry & Neurology Psychiatry | DX: F22 Delusional disorders (principal); M54.50 Low back pain, unspecified; G89.29 Other chronic pain; E78.2 Mixed hyperlipidemia | CPT/HCPCS: 99231; 99232 ==